=== PATIENT | male | born 1985 | race Two or more races ===

== ENCOUNTER 2018-02-27 08:39 | Emergency (ER) | payer OTHER ==
[~2018-02-27] VITALS: Ht 175.3 cm; Wt 189.6 kg
[2018-02-27 11:25] VITALS: BP 125/84
== END 2018-02-27 11:48 | disposition home or self-care (01) ==
LOC: ER 08:39
DX: S09.8XXA Other specified injuries of head, initial encounter (principal); E11.9 Type 2 diabetes mellitus without complications; I10 Essential (primary) hypertension; R42 Dizziness and giddiness; H53.8 Other visual disturbances; X58.XXXA Exposure to other specified factors, initial encounter; Y93.89 Activity, other specified; Y92.89 Other specified places as the place of occurrence of the external cause; Y99.8 Other external cause status
CPT/HCPCS: 70450